=== PATIENT | female | born 1950 | race Caucasian/White ===

== ENCOUNTER → 2017-12-20 | Outpatient (CLI) | payer MEDICARE ==
--- NOTE | 2017-12-20 14:42 | MR ---
EXAMINATION TYPE: MR brain and iac wo/w con DATE OF EXAM: 12/20/2017 2:26 PM COMPARISON: NONE HISTORY: Hearing loss TECHNIQUE: Multiplanar and multispin-echo imaging of the brain was performed both before and after the administr ation of contrast. High-resolution images are obtained of the internal auditory canals performed uti lizing 7 mL intravenous Gadavist contrast. The ventricles, basal cisterns and sulci overlying the cerebral convexities are mildly enlarged. There is no evidence for midline shift or mass effect. Acute intracranial hemorrhage or extra-axial collection is not evident. Scattered foci of increased signal within the deep and periventricular white matter are nonspecific w ith differential diagnostic possibilities including chronic small vessel ischemia, demyelination, vas culitis as well as sequela of chronic migraine headaches and Lyme's disease. High-resolution imaging of the internal auditory canals fails demonstrate evidence for an enhancing a coustic schwannoma or cerebellopontine cistern angle mass. Following contrast administration, there is no evidence for pathologic enhancement or enhancing mass. The paranasal sinuses and mastoid air cells are well-aerated. IMPRESSION: 1. No evidence of acoustic schwannoma or cerebellopontine angle mass. 2. Scattered nonspecific white matter lesions.
== END | disposition home or self-care (01) ==
LOC: RADMRIMAIN 12:23
PROVIDERS: ATTEND Otolaryngology
DX: H93.3X1 Disorders of right acoustic nerve (principal); H93.11 Tinnitus, right ear; H91.91 Unspecified hearing loss, right ear
CPT/HCPCS: 82565; 70553; 36415; A9581

== ENCOUNTER → 2020-12-02 | Outpatient (CLI) | payer MEDICARE ==
[2020-12-02 13:32] VITALS: BP 164/100; PULSE 80; RESP 18; TEMP 98.2
--- NOTE | 2020-12-02 14:05 | P.GSHP ---
History of Present Illness H&P Date: 12/02/20 Chief Complaint: right breast lump Yoav is a 70 year old white female seen in consultation for Dr. Ramirez regarding a lump in her right breast. She noted the lump in her right breast in August 2020. She states it is sore, and it has gotten slightly larger. She h ad a bilateral ultrasound done on 10-17-20 she was noted to have a region of thickening in the implant revision measuring 2.1 cm. She had bilateral breast implants placed about 38 years ago. She states that these are silicone implants. She then had a bilateral breast MRI performed on . This did not reveal any evidence for rupture of the silicone implants. Multiple bilateral radial folds were noted. She does not have mammograms performed secondary to the implants. She does not complain of any nipple discharge or skin changes. She did hit her right chest wall against a counter about May of 2020. She is not complaining of any breast infection. She has not had other breast surgery other than the bilateral breast implants. These are subpectoral implants. Secondary to the asymmetry now for breast it is difficult for her to find close to fit properly. Complain of some discomfort related to the bulge in the superior aspect of the right breast. The implants make it more difficult to examine her breasts to rule out malignancy. Her MRI was reviewed with Dr. Grimm from radiology, multiple bilateral radial folds were present indicative of internal capsular implant of the silicone implants. Additionally she has anxiety that if the internal capsule was ruptured with the extracapsular to rupture she would have systemic toxicity. Caffeine: 1 cup/day, pop on occasion nicotine: none chocolate: occasional hormones: none Family History: none Hormonal History: menarche: 11 1/2 M2, breast fed: yes, age at first : 19 menopause: 49 BCP: < 1 year Surgical History: right knee replacement shoulder surgery left groin tear Medical History: glutin allergy Social History: smoke: none alcohol: none drugs: none - Constitutional Constitutional: Denies chills, Denies fever - EENT Eyes: bilateral blurred vision, denies pain Ears: deny: decreased hearing, tinnitus Ears, nose, mouth and throat: Denies headache, Denies sore throat - Breasts Breasts: bilateral: as per HPI - Cardiovascular Cardiovascular: Denies chest pain, Denies shortness of breath - Respiratory Respiratory: Reports cough - Gastrointestinal Comment: glutin allergy Gastrointestinal: Reports constipation, Denies abdominal pain, Denies diarrhea, Denies nausea, Denies vomiting - Genitourinary (Female) Genitourinary: Denies dysuria, Denies hematuria - Menstruation Menstruation: Reports postmenopausal - Musculoskeletal Comment: arthritis in hands Musculoskeletal: Reports as per HPI - Integumentary Integumentary: Denies pruritus, Denies rash - Neurological Neurological: Denies numbness, Denies weakness - Psychiatric Psychiatric: Reports anxiety, Denies depression - Endocrine Endocrine: Reports weight change - Hematologic/Lymphatic Comment: none - Allergic/Immunologic Allergic/Immunologic: Reports seasonal allergies Medications and Allergies Allergies Allergy/AdvReac Type Severity Reaction Status Date / Time amoxicillin Allergy Rash/Hives Unverified 12/02/20 13:22 codeine Allergy Nausea Unverified 12/02/20 13:22 Sulfa (Sulfonamide Allergy Rash/Hives Unverified 12/02/20 13:22 Antibiotics) Surgical - Exam BMI 28 - General well developed, well nourished, no distress - Eyes normal ocular movement - ENT normal pinna, normal mucosa - Neck no masses, trachea midline - Respiratory normal respiratory effort, clear to auscultation - Cardiovascular Rhythm: regular Heart Sounds: normal: S1, S2 - Abdomen Abdomen: soft, non tender, no guarding, no rigid, no rebound - Integumentary normal turgor - Neurologic no disoriented, no combative - Musculoskeletal normal gait, normal posture - Psychiatric oriented to time, oriented to person, oriented to place, speech is normal, memory intact Breast Exam: BRA: 36D inspection: Asymmetry of the breast with the right breast at 12:00 having fullness which is able to be seen on inspection, grade 2 ptosis bilaterally Palpation: Right breast: Multi-positional exam no dominant masses or nodules of concern, fibrocystic breast changes, capsular contracture of the implant Right axilla: No adenopathy of concern Left breast: Multi-positional exam no dominant masses or nodules of concern, implant in place Left axilla: No adenopathy of concern Results Independent interpretation of MRI and ultrasound of the breast performed, and this was done in conjunction with radiology Dr. Grimm. It appears the patient most likely has bilateral internal capsular rupture. Assessment and Plan Assessment: Impression: 1. Fibrocystic breast changes 2. Asymmetry of the breast related to right breast implant intracapsular rupture and contracture 3. Contracture of the right implant with probable bilateral intracapusular implant rupture 4. Patient does not have an month mammograms done secondary to the implants and fear about extracapsular rupture and pain Plan: 1. Removal of bilateral subpectoral implants 2. This is not being done for cosmetic reasons and the patient is not going to have new implants placed 3. If we're monitoring this and a repeat ultrasound in 6 months is recommended, bilateral MRI one year 4. If patient notes any changes in her breasts would like to see her sooner CC: Dr. Li Encounter 40 minutes time spent in reviewing medical records, physical examination, and counselling.
== END ==
LOC: WWCWWP 12:54
PROVIDERS: ATTEND Surgery
DX: N60.11 Diffuse cystic mastopathy of right breast (principal); R92.8 Other abnormal and inconclusive findings on diagnostic imaging of breast; Z98.82 Breast implant status; Z96.651 Presence of right artificial knee joint; Z98.890 Other specified postprocedural states; F41.9 Anxiety disorder, unspecified

== ENCOUNTER → 2021-07-13 | Outpatient (CLI) | payer MEDICARE ==
[2021-07-13 11:04] VITALS: BP 161/90; PULSE 65; RESP 14; TEMP 97.9
--- NOTE | 2021-07-13 11:41 | P.PN ---
Subjective Progress Note Date: 07/13/21 Principal diagnosis: Bilateral internal breast implant rupture Yoav is a 71 year old white female seen in consultation for Dr. Ramirez regarding a lump in her right breast. She noted the lump in her right breast in August 2020. She states it is sore, and it has gotten slightly larger. She had a bilateral ultrasound done on 10-17-20 she was noted to have a region of thickening in the implant revision measuring 2.1 cm. She had bilateral breast implants placed about 38 years ago. She states that these are silicone implants. She then had a bilateral breast MRI performed on . This did reveal evidence of internal rupture of the silicone implan ts. Multiple bilateral radial folds were noted. She does not have mammograms performed secondary to the implants. She does not complain of any nipple discharge or skin changes. She did hit her right chest wall against a counter corner about May of 2020. Following this is when she noted a nodule in her right breast. She is not complaining of any breast infection. She has not had other breast surgery other than the bilateral breast implants. These are subpectoral implants. Secondary to the asymmetry now for breast it is difficult for her to find clotes to fit properly. Complain of some discomfort related to the bulge in the superior aspect of the right breast. The implants make it more difficult to examine her breasts to rule out malignancy. Her MRI was reviewed with Dr. Grimm as well as Dr. Kumar from radiology, multiple bilateral radial folds were present indicative of internal capsular implant of the silicone implants. Additionally she has anxiety that if the internal capsule was ruptured with the extracapsular to rupture she would have systemic toxicity. She has had phizer COVID vaccine two shots. Caffeine: 1 cup/day, pop on occasion nicotine: none chocolate: occasional hormones: none Family History: none Hormonal History: menarche: 12 1/2 M2, breast fed: yes, age at first : 19 menopause: 49 BCP: < 1 year Surgical History: right knee replacement shoulder surgery left groin tear bilateral breast implants Medical History: gluten allergy Social History: smoke: none alcohol: none drugs: none - Constitutional Constitutional: Denies chills, Denies fever - EENT Eyes: bilateral blurred vision, denies pain Ears: deny: decreased hearing, tinnitus Ears, nose, mouth and throat: Denies headache, Denies sore throat - Breasts Breasts: bilateral: as per HPI - Cardiovascular Cardiovascular: Denies chest pain, Denies shortness of breath - Respiratory Respiratory: Reports cough - Gastrointestinal Comment: glutin allergy Gastrointestinal: Reports constipation, Denies abdominal pain, Denies diarrhea, Denies nausea, Denies vomiting - Genitourinary (Female) Genitourinary: Denies dysuria, Denies hematuria - Menstruation Menstruation: Reports postmenopausal - Musculoskeletal Comment: arthritis in hands Musculoskeletal: Reports as per HPI - Integumentary Integumentary: Denies pruritus, Denies rash - Neurological Neurological: Denies numbness, Denies weakness - Psychiatric Psychiatric: Reports anxiety, Denies depression - Endocrine Endocrine: Reports weight change - Hematologic/Lymphatic Comment: none - Allergic/Immunologic Allergic/Immunologic: Reports seasonal allergies Objective - Vital Signs Vital signs: Vital Signs Temp 97.9 F 07/13/21 10:48 Pulse 65 07/13/21 10:48 Resp 14 07/13/21 10:48 BP 161/90 07/13/21 10:48 Pulse Ox 95 07/13/21 10:48 Intake & Output 07/12/21 07/13/21 07/13/21 18:59 06:59 18:59 Weight 72.575 kg - Exam BMI 26.6 - Constitutional General appearance: Present: cooperative - EENT Eyes: Present: EOMI ENT: Present: hearing grossly normal - Neck Neck: Present: normal ROM - Respiratory Respiratory: bilateral: CTA - Cardiovascular Rhythm: regular Heart sounds: normal: S1, S2 - Gastrointestinal General gastrointestinal: Present: soft - Integumentary Integumentary: Present: normal turgor - Musculoskeletal Musculoskeletal: Present: gait normal - Psychiatric Psychiatric: Present: A&O x's 3, appropriate affect, intact judgment & insight - Additional findings Additional findings: Breast Exam: BRA: 36D inspection: bilateral grade 2/3 ptosis Palpation: right breast: Asymmetry related to contracture of the implant on the right side, no dominant masses or nodules of concern Right axilla: No adenopathy of concern Left breast: Multi-positional exam implant in place no dominant masses or nodules of concern asymmetric to the right breast Left axilla: No adenopathy of concern Assessment and Plan Assessment: Impression: 1. Fibrocystic breast changes 2. Asymmetry of the breasts related to right implant intracapsular rupture and contracture 3. Contracture of the right implant with bilateral intracapsular implant rupture 4. Patient does not have mammograms secondary to the implants inferiorly about extracapsular rupture and pain Plan: 1. Removal of bilateral implants and capsules 2. Patient had a bilateral ultrasound performed in September 2020 which did not show any lesions of concern in the left breast, concern about right breast capsular rupture led to a bilateral breast MRI. Bilateral breast MRI did not show any specific lesions in the breast although this was done without contrast. The patient is aware that this is not the most sensitive study however at this time she would like to forego a mammogram until it implants are removed. She understands that if the mammogram reveals an area of concern after the implants have been removed it may require more surgery. Risks and benefits of the procedure were discussed with the patient. Risks include but are not limited to bleeding, infection, reaction to the anesthetic. The patient does not want reconstruction at this time. She has been given the option of seeing a plastic surgeon and has declined. 3. preop clearance Dr. Li CC: Dr. Li
== END | disposition home or self-care (01) ==
LOC: WWCWWP 10:42
PROVIDERS: ATTEND Surgery
DX: Z53.9 Procedure and treatment not carried out, unspecified reason (principal)

== ENCOUNTER 2021-08-08 07:18 | Day surgery (SDC) | payer MEDICARE ==
[2021-08-04 12:16] VITALS: BMI 27.5
[~2021-08-08 07:18] MED LIST: DEXAMETHASONE SOD PHOSPHATE 4 MG/ML 1 ML VIAL IV ONE; HEPARIN SODIUM,PORCINE/PF 5,000 UNIT/0.5 ML SYRINGE SQ PRN; LACTATED RINGERS 1,000 ML IV SCH; MIDAZOLAM 2 MG/2 ML VIAL IV PRN; ONDANSETRON 4 MG/2 ML VIAL IVP ONE; Pre Op ABX Message 1 EACH MISC MISCELLANE ONE
[2021-08-08] MEDS ORDERED: LIDOCAINE 1% (10MG/ML) FOR IV START IV ONE (08:14)
[2021-08-08] MEDS ORDERED: SUCCINYLCHOLINE CHLORIDE 100 MG/5 ML SYR IV ONE (08:44)
[2021-08-08] MEDS ORDERED: PHENYLEPHRINE-0.9% NACL SYG 1,000 MCG/10 ML SYRINGE ONE (08:44)
[2021-08-08] MEDS ORDERED: NEOSTIGMINE 1 MG/ML 10 ML VIAL ONE (08:44)
[2021-08-08] MEDS ORDERED: PROPOFOL 10 MG/ML 20 ML VIAL IV ONE (08:44)
[2021-08-08] MEDS ORDERED: ROCURONIUM 10 MG/ML (5 ML VIAL) IV ONE (08:44)
[2021-08-08] MEDS ORDERED: fentaNYL (PF) 50 MCG/ML 2 ML AMP ONE (08:44)
[2021-08-08] MEDS ORDERED: GLYCOPYRROLATE 0.2 MG/ML 2 ML VIAL ONE (08:44)
[2021-08-08] MEDS ORDERED: MIDAZOLAM 2 MG/2 ML VIAL ONE (08:44)
[2021-08-08] MEDS ORDERED: LIDOCAINE 1% INJ 10MG/ML (20 ML MDV) ONE (08:44)
[2021-08-08] MEDS ORDERED: SODIUM CHLORIDE 0.9% 100 ML with ceFAZolin 2,000 MG IV ONE ×2 (08:47)
--- NOTE | 2021-08-08 10:52 | P.OP ---
Date of Procedure: 08/08/21 Preoperative Diagnosis: Bilateral implant contractures and probable bilateral internal implant rupture Postoperative Diagnosis: Same Procedure(s) Performed: Bilateral removal of implant as well as implant capsules Anesthesia: MARGARITA Surgeon: Sabine Galeas Estimated Blood Loss (ml): 20 IV fluids (ml): 300 Pathology: other (Bilateral implants and bilateral implant capsules) Condition: stable Disposition: same day Indications for Procedure: Bilateral implant contractures, bilateral internal implant rupture Description of Procedure: The patient is a 71-year-old white female who presents with contractures of bilateral implants as well as internal capsular rupture. The patient has opted for bilateral implant removal. She does not want reconstruction. The patient was taken to the operating room and following induction of anesthesia both breasts were prepped and draped in a sterile fashion. The right breast was approached initially. An incision was made and carried down to the area of the implant. The capsule was removed in continuity with the implant. Upon entering the area of the capsule at several points there was is noted to be viscous material inside of the capsule between the capsule and the implant. The area was removed in continuity. The wound was well irrigated. A KENNY drain was placed. Surgicel in powder form was placed. The deep tissues were closed using 3-0 Vicryl suture. The skin was closed using 4-0 Monocryl. A nylon suture was then run. The left breast was approached. An incision was made and carried down to the area of the implant. The implant and capsule were removed. Again there was noted to be viscous-like material between the implant and the capsule. After this had been removed the wound was well irrigated. Surgicel in powder form was placed. A KENNY drain was placed. The deep tissues were closed using 3-0 Vicryl suture. This was followed by closure of the skin with a 4-0 Monocryl and a 4-0 nylon suture. The drains were both secured in place using a nylon suture. The patient tolerated the procedure in stable condition. All instrument and sponge counts were correct at the end of the case.
--- NOTE | 2021-08-08 10:54 | P.DS ---
Providers Attending physician: Sabine Galeas Primary care physician: Lui Li MD Plan - Discharge Summary Discharge Rx Participant: Yes New Discharge Prescriptions: No Action Loratadine [Claritin] 10 mg PO DAILY Discharge Medication List Loratadine [Claritin] 10 mg PO DAILY 12/02/20 [History] Follow up Appointment(s)/Referral(s): Sabine Galeas MD [STAFF PHYSICIAN] - 1 Week Activity/Diet/Wound Care/Special Instructions: teach KENNY drain care dran and record every day and as nemiracle wear bra at all times radha shower after 48 hours Discharge Disposition: HOME SELF-CARE
[2021-08-08] MEDS ORDERED: ONDANSETRON 4 MG/2 ML VIAL IVP ONE (11:21)
[2021-08-08] MEDS ORDERED: ONDANSETRON 4 MG/2 ML VIAL ONE (11:23)
[2021-08-08 11:35] VITALS: TEMP 96.8
[2021-08-08] MEDS: fentaNYL (PF) 50 MCG/ML 2 ML AMP IV PRN ×2 (11:42→11:56)
[2021-08-08] MEDS ORDERED: LACTATED RINGERS 1,000 ML IV ONE ×2 (12:15)
[2021-08-08 12:20] VITALS: RESP 16
[2021-08-08 13:36] VITALS: BP 163/90; PULSE 91
== END 2021-08-08 14:52 | disposition home or self-care (01) ==
LOC: OR 07:18
PROVIDERS: ATTEND Surgery
DX: T85.44XA Capsular contracture of breast implant, initial encounter (principal); T85.898A Other specified complication of other internal prosthetic devices, implants and grafts, initial encounter; N60.12 Diffuse cystic mastopathy of left breast; N60.11 Diffuse cystic mastopathy of right breast; K90.41 Non-celiac gluten sensitivity; Z96.651 Presence of right artificial knee joint; Z98.890 Other specified postprocedural states; Z79.899 Other long term (current) drug therapy; F41.9 Anxiety disorder, unspecified
CPT/HCPCS: 19330; 88305; 19371; J2250; J1100; J2710; J2405; J0690; J2001; J3010; J2370; J0330; J2704

== ENCOUNTER → 2021-08-15 | Outpatient (CLI) | payer MEDICARE ==
--- NOTE | 2021-08-15 12:36 | P.PN ---
Progress Note - Text Progress Note Date: 08/15/21 Yoav is a 71 year old white female status post 08-08-21 bilateral implant removal. She had bilateral KENNY drains placed. She has minimal output from the KENNY drains at this time. She is however complain of some tenderness at the entrance site of the KENNY drains. Physical examination: Lungs: Coarse breath sounds at the bases Heart: S1-S2 Incisions bilateral clean and dry KENNY drains: Serous output no evidence of infection inflammation at entrance sites Plan: DC KENNY drains follow up Saturday for suture removal
== END ==
LOC: WWCWWP 12:05
PROVIDERS: ATTEND Surgery
DX: Z53.9 Procedure and treatment not carried out, unspecified reason (principal)

== ENCOUNTER → 2021-08-18 | Outpatient (CLI) | payer MEDICARE ==
--- NOTE | 2021-08-18 14:53 | P.PN ---
Progress Note - Text Progress Note Date: 08/18/21 Yoav is a 71 year old white female status post 08-08-21 bilateral implant removal. She had bilateral KENNY drains placed. She was having minimal output from the KENNY drains and these were removed on 08-08-21. She is doing well at this time. Physical examination: Lungs: Clear Heart: S1-S2 Incisions bilateral clean and dry Plan: Sutures removal follow up bilateral mammogram in 6 months with appointment at that time patient to follow up sooner if any concerns CC: Dr. Li
== END | disposition home or self-care (01) ==
LOC: WWCWWP 14:42
PROVIDERS: ATTEND Surgery
DX: Z53.9 Procedure and treatment not carried out, unspecified reason (principal)